=== PATIENT | female | born 1970 | race American Indian/Alaskan Native ===

== ENCOUNTER 2021-03-10 00:04 | Emergency (ER) | payer MEDICAID ==
[2021-03-10 00:11] VITALS: BP 169/87
[2021-03-10] MEDS ORDERED: oxyCODONE /ACETAMINOPHEN 5-325MG TAB PO ONE (03:29)
[2021-03-10] MEDS ORDERED: ONDANSETRON 4 MG ODT TAB PO ONE (03:29)
[2021-03-10] MEDS ORDERED: AMOXICILLIN/K CLAV 875/125MG TAB PO ONE (03:29)
[2021-03-10] MEDS ORDERED: IBUPROFEN 600 MG TAB PO ONE (03:29)
--- NOTE | 2021-03-10 03:47 | Emergency Department Report ---
ED General Adult HPI - General Chief complaint: Dental/Oral Stated complaint: BROKEN TOOTH Source: patient Mode of arrival: Ambulatory Limitations: No Limitations - History of Present Illness Initial comments: Patient is a 50-year-old -[place] female with no past medical history presents to the ED with complaint of acute onset persistent severe painful swollen left mandibular gingiva and severe painful right mandibular premolar and molar toothache for the last 8 hours. Patient states that she has been taking [id number] pain medications with no relief. Patient denies dizziness, syncope, chest pain, shortness of breath, traumatic injury, sore throat, fever, chills, cough, nausea and vomiting ordered abdominal pain and diarrhea. MD Complaint: left mandibular premolar and molar toothache with swollen gum -: Sudden, hour(s) (8) Location: mouth Radiation: non-radiation Severity scale (0 -10): 10 Quality: aching, sharp Consistency: constant Improves with: none Worsens with: none Associated Symptoms: denies other symptoms. denies: confusion, chest pain, headaches, malaise, nausea/vomiting, seizure, shortness of breath, syncope, weakness Treatments Prior to Arrival: none - Related Data Previous Rx's Medication Instructions Recorded Last Taken Type Amoxicillin/Potassium Clav 1 each PO Q12H #20 tab 03/10/21 Unknown Rx [Augmentin 875-125 Tablet] Ketorolac [Toradol] 10 mg PO Q8H PRN #20 tab 03/10/21 Unknown Rx traMADoL [Ultram] 50 mg PO Q6HR PRN #12 tablet 03/10/21 Unknown Rx Allergies Allergy/AdvReac Type Severity Reaction Status Date / Time No Known Allergies Allergy Unverified 11/23/15 13:45 ED Review of Systems ROS: Stated complaint: BROKEN TOOTH Other details as noted in HPI Constitutional: denies: chills, fever Eyes: denies: eye pain, eye discharge, vision change ENT: dental pain (Left mandibular premolar and molar toothache with swollen painful gum). denies: ear pain, throat pain Respiratory: denies: cough, shortness of breath, wheezing Cardiovascular: denies: chest pain, palpitations Endocrine: no symptoms reported Gastrointestinal: denies: abdominal pain, nausea, diarrhea Genitourinary: denies: urgency, dysuria, discharge Musculoskeletal: denies: back pain, joint swelling, arthralgia Skin: denies: rash, lesions Neurological: denies: headache, weakness, paresthesias Psychiatric: denies: anxiety, depression Hematological/Lymphatic: denies: easy bleeding, easy bruising ED Past Medical Hx - Past Medical History Previous Medical History?: No - Surgical History Past Surgical History?: No - Medications Home Medications: Home Medications Medication Instructions Recorded Confirmed Last Taken Type Amoxicillin/Potassium Clav 1 each PO Q12H #20 tab 03/10/21 Unknown Rx [Augmentin 875-125 Tablet] Ketorolac [Toradol] 10 mg PO Q8H PRN #20 tab 03/10/21 Unknown Rx traMADoL [Ultram] 50 mg PO Q6HR PRN #12 tablet 03/10/21 Unknown Rx ED Physical Exam - General Limitations: No Limitations General appearance: alert, in no apparent distress - Head Head exam: Present: atraumatic, normocephalic, normal inspection - Eye Eye exam: Present: normal appearance, PERRL, EOMI Pupils: Present: normal accommodation - ENT ENT exam: Present: mucous membranes moist, TM's normal bilaterally, normal exter nal ear exam, other (Swollen, severely tender left mandibular premolar and molar teeth; also severely tender and mildly swollen left mandibular gingiva) - Neck Neck exam: Present: normal inspection, full ROM. Absent: tenderness - Respiratory Respiratory exam: Present: normal lung sounds bilaterally. Absent: respiratory distress, wheezes, rales, rhonchi, chest wall tenderness, accessory muscle use, decreased breath sounds, prolonged expiratory - Cardiovascular Cardiovascular Exam: Present: normal rhythm, tachycardia, normal heart sounds. Absent: systolic murmur, diastolic murmur, rubs, gallop - GI/Abdominal GI/Abdominal exam: Present: soft, normal bowel sounds. Absent: distended, tenderness, guarding, rebound, hyperactive bowel sounds, hypoactive bowel sounds, organomegaly - Extremities Exam Extremities exam: Present: normal inspection, full ROM, normal capillary refill - Back Exam Back exam: Present: normal inspection, full ROM. Absent: tenderness, CVA tenderness (R), CVA tenderness (L), muscle spasm, vertebral tenderness - Neurological Exam Neurological exam: Present: alert, oriented X3, CN II-XII intact, normal gait, reflexes normal - Psychiatric Psychiatric exam: Present: normal affect, normal mood. Absent: anxious - Skin Skin exam: Present: warm, dry, intact, normal color. Absent: rash ED Course Vital Signs 03/10/21 00:11 Temperature 98.5 F Pulse Rate 101 H Respiratory 18 Rate Blood Pressure 169/87 [Right] O2 Sat by Pulse 97 Oximetry ED Medical Decision Making - Medical Decision Making This is a 50-year-old -[place] female with no past medical history presents to the ED with complaint of acute onset persistent severe painful swollen left mandibular gingiva and severe painful right mandibular premolar and molar toothache for the last 8 hours. Patient states that she has been taking [id number] pain medications with no relief. In the ED, patient is alert and oriented x3 and is not in any distress but anxious and tachycardic and appears to be in pain. Patient was treated for pain in the ED and initially given oral antibiotics. Patient was discharged home on pain medication and prophylactic antibiotics for suspected dental abscess.. Patient was advised to follow-up with her dentist in 7 to 10 days for reevaluation or return to the ED immediately if symptoms get worse. - Differential Diagnosis Dental abscess; dental caries; gingivitis Critical care attestation.: If time is entered above; I have spent that time in minutes in the direct care of this critically ill patient, excluding procedure time. ED Disposition Clinical Impression: Dental abscess, Acute gingivitis, Dental caries Disposition: HOME / SELF CARE / HOMELESS Is pt being admited?: No Does the pt Need Aspirin: No Condition: Stable Instructions: Dental Abscess, [id number], Trench Mouth, Dental Extraction, Care After, [id number] Additional Instructions: Take medication with food, drink plenty of fluids and follow-up with your primary care physician or dentist in 7 to 10 days for reevaluation. Return to the ED immediately if symptoms get worse. Prescriptions: Amoxicillin/Potassium Clav [Augmentin 875-125 Tablet] 1 each PO Q12H #20 tab Ketorolac [Toradol] 10 mg PO Q8H PRN #20 tab PRN Reason: Pain traMADoL [Ultram] 50 mg PO Q6HR PRN #12 tablet PRN Reason: Pain Referrals: [facility] [Outside] - 7-10 days Time of Disposition: 03:45 Print Language: ANGOLAN
== END 2021-03-10 04:29 | disposition home or self-care (01) ==
LOC: ED 00:04
DX: K04.7 Periapical abscess without sinus (principal); K05.10 Chronic gingivitis, plaque induced; K02.9 Dental caries, unspecified
CPT/HCPCS: 99282; J3490; Q0162